=== PATIENT | female | born 1990 | race Caucasian/White ===

== ENCOUNTER 2016-11-05 22:58 | Emergency (ER) | payer OTHER ==
[~2016-11-05] VITALS: Ht 160 cm; Wt 116.5 kg
[~2016-11-05 22:58] MED LIST: FERR27TA PO; PREN1TAB49 PO
[2016-11-05 23:01] VITALS: Ht 160 cm; Wt 116.5 kg
[2016-11-05] MEDS ORDERED: PRED20TA PO (23:40)
[2016-11-05] MEDS ORDERED: AZIT250T94 PO (23:40)
[2016-11-05 23:52] VITALS: BP 123/65; PULSE 91; RESP 20; TEMP 98.7
--- NOTE | 2016-11-06 00:41 | ERD ---
ER Documentation Chief Complaint Date/Time DATE: 11/06/16 TIME: 00:39 Chief Complaint sore throat/bilateral earache x 1 day HPI This patient is a 26-year-old female presenting to the emergency department for bilateral ear pain and sore throat ongoing intermittently for the past day. She has had trouble swallowing food and water secondary to pain. Symptoms are worsened with eating and drinking. Symptoms are relieved with Tylenol. Symptoms are moderate in severity. She denies any fevers, chills, nausea, vomiting, diarrhea, or other symptoms. ROS All systems reviewed and are negative except as per history of present illness. Medications Home Meds Active Scripts Prednisone* (Prednisone*) 20 Mg Tab, 40 MG PO DAILY for 5 Days, #10 TAB Prov:JOSEPHINE MENDEZ PA-C 11/05/16 Azithromycin* (Zithromax*) 250 Mg Tablet, 250 MG PO .ZPACK DIRECTED, #6 TAB TAKE 500 MG (2 TABS) THE FIRST DAY THEN 250 MG (1 TAB) DAYS 2-5 Prov:JOSEPHINE MENDEZ PA-C 11/05/16 Reported Medications Ferrous Sulfate (Iron) 1 Tab Tablet, 1 TAB PO DAILY 01/13/11 Vits W-Ca,Fe,Fa(<1MG) () 1 Tab Tablet, 1 TAB PO DAILY 01/13/11 Allergies Allergies: Coded Allergies: No Known Drug Allergies (Verified Allergy, Unknown, 11/05/16) PMhx/Soc Medical and Surgical Hx: pt denies Medical Hx, pt denies Surgical Hx History of Surgery: No Anesthesia Reaction: No Hx Neurological Disorder: No Hx Respiratory Disorders: No Hx Cardiac Disorders: No Hx Psychiatric Problems: No Hx Miscellaneous Medical Probl: No Hx Alcohol Use: No Hx Substance Use: No Hx Tobacco Use: No Smoking Status: Never smoker Physical Exam Vitals Vital Signs Date Time Temp Pulse Resp B/P Pulse Ox O2 Delivery O2 Flow Rate FiO2 11/05/16 23:52 98.7 91 20 123/65 99 Room Air 11/05/16 23:01 99.2 102 20 137/71 98 Physical Exam Const: Nontoxic, well-appearing female in no acute distress. Head: Atraumatic Eyes: Normal Conjunctiva ENT: Normal External Ears, Nose and Mouth. There is bilateral tonsillar hypertrophy, erythema, but the airway is clear. There is no uvular deviation. Neck: Full range of motion..~ No meningismus. Resp: Clear to auscultation bilaterally Cardio: Regular rate and rhythm, no murmurs Abd: Soft, non tender, non distended. Normal bowel sounds Skin: No petechiae or rashes Back: No midline or flank tenderness Ext: No cyanosis, or edema Neur: Awake and alert Psych: Normal Mood and Affect Procedures/MDM 26-year-old female presenting to the emergency department with complaints of odynophagia and dysphagia. On physical examination the patient's vitals are within normal limits. History and clinical examination is concerning for tonsillitis. The patient stable for outpatient management with a prescription for azithromycin and prednisone. Her questions and concerns were addressed. I low suspicion for peritonsillar abscess, retropharyngeal abscess, septicemia, or other emergent conditions. Close follow-up with the primary care physician advised. Strict ER return precautions were discussed. Departure Diagnosis: Primary Impression: Tonsillitis Condition: Fair Patient Instructions: Pharyngitis, Strep (Presumed) Additional Instructions: Follow up with your PCP within the next 1-3 days for a repeat evaluation and a possible referral to a specialist, if required. Return the the emergency department immediately if symptoms worsen or change. If you have any questions regarding medications, ask your pharmacist or us before you leave. If any adverse reactions, occur while taking your medications, discontinue the treatment and return to the emergency department immediately. If any new or worsening symptoms, uncontrolled fevers, or other unexplained symptoms occur, return to the emergency department immediately. Take your medications as directed, and complete the entire course of treatment. JOSEPHINE MENDEZ PA-C Nov 06, 2016 00:41
== END 2016-11-05 23:52 | disposition home or self-care (01) ==
LOC: FTE 22:58
DX: J03.90 Acute tonsillitis, unspecified (principal)
CPT/HCPCS: 99284

== ENCOUNTER 2018-04-17 17:42 | Emergency (ER) | END 2018-04-17 19:16 | disposition home or self-care (01) ==

== ENCOUNTER 2018-07-19 08:34 | Emergency (ER) | payer OTHER ==
[~2018-07-19] VITALS: Ht 167.6 cm; Wt 129.0 kg
[~2018-07-19 08:34] MED LIST changes: +AZIT250T PO; +IBUP-1542 PO; +PENI500T PO; +PRED20TA PO; +TYL500 PO
[2018-07-19 08:38] VITALS: BP 147/63; PULSE 93; RESP 18; Ht 167.6 cm; Wt 129.0 kg
[2018-07-19] MEDS ORDERED: AZIT250T PO (08:56)
[2018-07-19] MEDS ORDERED: PSEU-79 PO (08:56)
[2018-07-19] MEDS ORDERED: FLUT9.9S NASAL (08:56)
--- NOTE | 2018-07-19 15:31 | ERD ---
ER Documentation Chief Complaint Chief Complaint HEADACHE , RT EAR PAIN X 3 WEEKS HPI 28-year-old female presenting with headache and ear pain times 2 weeks. Patient has had some mild sinus congestion and frontal headaches. Took Advil yesterday but no medication today. No fevers. Medical history of migraine. NKDA. Surgical history denies. Social history denies ROS All systems reviewed and are negative except as per history of present illness. Medications Home Meds Active Scripts Azithromycin* (Zithromax*) 250 Mg Tablet, 250 MG PO .AnjumPAAARON DIRECTED, #6 TAB TAKE 500 MG (2 TABS) THE FIRST DAY THEN 250 MG (1 TAB) DAYS 2-5 Prov:RODOLFO HANCOCK PA-C 07/19/18 Fluticasone Propionate (Flonase Allergy Relief) 9.9 Ml [place].susp, 1 SPRAY NASAL DAILY, #1 BOTTLE TO EACH NOSTRIL Prov:RODOLFO HANCOCK PA-C 07/19/18 Pseudoephedrine Hcl* (Suphedrin*) 30 Mg Tablet, 30 MG PO Q6 PRN for CONGESTION, #30 TAB Prov:RODOLFO HANCOCK PA-C 07/19/18 Acetaminophen* (Tylenol*) 500 Mg Tab, 500 MG PO Q4H PRN for MILD PAIN LEVEL 1-3, #30 TAB Prov:TOBY NARAYAN DO 04/17/18 Ibuprofen* (Motrin*) 600 Mg Tab, 600 MG PO Q6H PRN for PAIN, #30 TAB Prov:TOBY NARAYAN DO 04/17/18 Penicillin V Potassium* (Penicillin V K*) 500 Mg Tab, 500 MG PO TID for strep throat for 10 Days, #30 TAB Prov:TOBY NARAYAN DO 04/17/18 Prednisone* (Prednisone*) 20 Mg Tab, 40 MG PO DAILY for 5 Days, #10 TAB Prov:JOSEPHINE MENDEZ PA-C 11/05/16 Azithromycin* (Zithromax*) 250 Mg Tablet, 250 MG PO .RAYMOND DIRECTED, #6 TAB TAKE 500 MG (2 TABS) THE FIRST DAY THEN 250 MG (1 TAB) DAYS 2-5 Prov:JOSEPHINE MENDEZ PA-C 11/05/16 Reported Medications Ferrous Sulfate (Iron) 1 Tab Tablet, 1 TAB PO DAILY 01/13/11 Vits W-Ca,Fe,Fa(<1MG) () 1 Tab Tablet, 1 TAB PO DAILY 01/13/11 Allergies Allergies: Coded Allergies: No Known Drug Allergies (Verified Allergy, Unknown, 11/05/16) PMhx/Soc History of Surgery: No Anesthesia Reaction: No Hx Neurological Disorder: No Hx Respiratory Disorders: No Hx Cardiac Disorders: No Hx Psychiatric Problems: No Hx Miscellaneous Medical Probl: No Hx Alcohol Use: No Hx Substance Use: No Hx Tobacco Use: No Smoking Status: Never smoker FmHx Family History: No diabetes, No coronary disease, No other Physical Exam Vitals Vital Signs Date Temp Pulse Resp B/P (MAP) Pulse Ox O2 O2 Flow FiO2 Time Delivery Rate 07/19/18 98.3 93 18 147/63 99 08:38 (91) Physical Exam GENERAL: The patient is well-appearing, well-nourished, in no acute distress HEENT: Atraumatic. Conjunctivae are pink. Pupils equal, round, and reactive to light. There is no scleral icterus. Tympanic membranes clear bilaterally. Oropharynx clear. NECK: C-spine is soft and supple. There is no meningismus. There is no cervical lymphadenopathy. CHEST: Clear to auscultation bilaterally. There are no rales, wheezes or rhonchi. HEART: Regular rate and rhythm. No murmurs, clicks, rubs or gallops. NEUROLOGIC: Alert and oriented. Cranial nerves II through XII intact. Motor strength in all 4 extremities with 5 out of 5 strength. Sensation grossly intact. Normal speech and gait. SKIN: There is no apparent rash or petechiae. The skin is warm and dry. Procedures/MDM MDM: 28-year-old female presenting with sinus congestion. Patient's headache is likely associated with sinus congestion I will treat with antibiotics given the symptoms have been going on for 3 weeks. Patient will also be discharged with decongestants. I have low suspicion for intracranial hemorrhage or neuro defic it. I have low suspicion for sepsis. Patient is discharged with stricter precautions and told to follow-up with primary care within 1-2 days for close evaluation. Patient is told symptoms change or worsen to return immediately to the ER. All questions answered at discharge Departure Diagnosis: Primary Impression: Sinusitis Additional Impression: Headache Condition: Stable Patient Instructions: Self-Care for Headaches Additional Instructions: FOLLOW UP WITH YOUR PRIMARY CARE PHYSICIAN TOMORROW.Return to this facility if you are not improving as expected. RODOLFO HANCOCK PA-C Jul 19, 2018 15:31
== END 2018-07-19 09:25 | disposition home or self-care (01) ==
LOC: FTE 08:34
DX: J32.9 Chronic sinusitis, unspecified (principal)
CPT/HCPCS: 99283

== ENCOUNTER 2018-11-09 17:58 | Emergency (ER) | payer OTHER ==
[~2018-11-09] VITALS: Wt 98.0 kg
[~2018-11-09 17:58] MED LIST changes: +FLUT9.9S NASAL; +PSEU-79 PO
[2018-11-09] MEDS ORDERED: IBUPROFEN 600 MG TAB PO ONE (20:00)
[2018-11-09] MEDS ORDERED: D-ME473S2 PO (20:46)
--- NOTE | 2018-11-09 20:50 | ERD ---
ER Documentation Chief Complaint Chief Complaint SORE THROAT HPI This is a 28-year-old female presents ED with complaints of sore throat x4 days. Patient admits to runny nose and cough and congestion. Denies fever, chills, nausea, vomiting, diarrhea, constipation, sputum production, shortness of breath, trouble breathing, chest pain and all other symptoms. No known drug allergies. ROS All systems reviewed and are negative except as per history of present illness. Medications Home Meds Active Scripts Dextromethorphan Hb-Promethazine Hcl* (Promethazine DM* Syrup) 473 Ml Syrup, 5 ML PO Q6 PRN for COUGH for 5 Days, ML Prov:DULCE MIKE PA-C 11/09/18 Azithromycin* (Zithromax*) 250 Mg Tablet, 250 MG PO .ZPAAARON DIRECTED, #6 TAB TAKE 500 MG (2 TABS) THE FIRST DAY THEN 250 MG (1 TAB) DAYS 2-5 Prov:RODOLFO HANCOCK PA-C 07/19/18 Fluticasone Propionate (Flonase Allergy Relief) 9.9 Ml [place].susp, 1 SPRAY NASAL DAILY, #1 BOTTLE TO EACH NOSTRIL Prov:RODOLFO HANCOCK PA-C 07/19/18 Pseudoephedrine Hcl* (Suphedrin*) 30 Mg Tablet, 30 MG PO Q6 PRN for CONGESTION, #30 TAB Prov:RODOLFO HANCOCK PA-C 07/19/18 Acetaminophen* (Tylenol*) 500 Mg Tab, 500 MG PO Q4H PRN for MILD PAIN LEVEL 1-3, #30 TAB Prov:TOBY NARAYAN DO 04/17/18 Ibuprofen* (Motrin*) 600 Mg Tab, 600 MG PO Q6H PRN for PAIN, #30 TAB Prov:TOBY NARAYAN DO 04/17/18 Penicillin V Potassium* (Penicillin V K*) 500 Mg Tab, 500 MG PO TID for strep throat for 10 Days, #30 TAB Prov:TOBY NARAYAN DO 04/17/18 Prednisone* (Prednisone*) 20 Mg Tab, 40 MG PO DAILY for 5 Days, #10 TAB Prov:JOSEPHINE MENDEZC 11/05/16 Azithromycin* (Zithromax*) 250 Mg Tablet, 250 MG PO .ZPACK DIRECTED, #6 TAB TAKE 500 MG (2 TABS) THE FIRST DAY THEN 250 MG (1 TAB) DAYS 2-5 Prov:JOSEPHINE MENDEZ PA-C 11/05/16 Reported Medications Ferrous Sulfate (Iron) 1 Tab Tablet, 1 TAB PO DAILY 01/13/11 Vits W-Ca,Fe,Fa(<1MG) () 1 Tab Tablet, 1 TAB PO DAILY 01/13/11 Allergies Allergies: Coded Allergies: No Known Drug Allergies (Verified Allergy, Unknown, 11/05/16) PMhx/Soc History of Surgery: No Anesthesia Reaction: No Hx Neurological Disorder: No Hx Respiratory Disorders: No Hx Cardiac Disorders: No Hx Psychiatric Problems: No Hx Miscellaneous Medical Probl: No Hx Alcohol Use: No Hx Substance Use: No Hx Tobacco Use: No Smoking Status: Never smoker FmHx Family History: No diabetes Physical Exam Vitals Vital Signs Date Temp Pulse Resp B/P (MAP) Pulse Ox O2 O2 Flow FiO2 Time Delivery Rate 11/09/18 97.3 84 18 145/64 99 18:05 (91) Physical Exam Physical Exam Vitals signs: Reviewed by me. General: Well developed, well nourished, in no acute distress. Patient is awake and alert. Head: Normocephalic, atraumatic. Eyes: Normal conjunctiva, Pupils PERRLA, EOM intact grossly ENT: Pharynx is clear, Moist mucous membranes, external ears, nose and mouth normal, oropharynx is clear with mild tonsillar adenopathy, no exudate or erythema, no kissing tonsils, no uvula deviation, tympanic membrane visualized bilaterally with no bulging, erythema, purulent air-fluid line seen Neck: Supple, no masses, lymphadenopathy or JVD Respiratory: Clear to auscultation bilaterally with no wheezing, rhonchi, rales, no distress Cardiovascular: RRR, no murmurs, rubs, or gallops Neurologic: Alert and oriented, moving all extremities, normal speech, no focal weakness, no cerebellar signs. Normal mentation Skin: warm and dry, No rash Psych: Normal mood Results 24 hrs Current Medications Medications Dose Sig/Lay Start Time Status Last (Trade) Ordered Route PRN Stop Time Admin Dose Reason Admin Ibuprofen 600 mg ONCE ONCE 11/09/18 DC 11/09/18 (Motrin) PO 20:00 20:03 11/09/18 20:01 Procedures/MDM LAB INTERPRETATION: Strep negative ER COURSE: The patient was given ibuprofen The medication was well tolerated and the patient reports improvement in symptoms. The patient was stable throughout ED course. I kept the patient and/or family informed of laboratory and diagnostic imaging results throughout the emergency room course. The patient was promptly evaluated and a treatment plan was devised based on H&P and other data. This plan was discussed with the patient who agreed and had no further questions or concerns prior to discharge. MEDICAL DECISION MAKING: This is a 28-year-old female presents ED with URI-like symptoms for the past 4 days. Patient is requesting a strep test in the emergency department today. Strep is negative. The patient's clinical presentation is very consistent with an viral uri. No evidence of pneumonia. The patient is well-appearing without respiratory distress. Normal oxygen saturation. X-ray imaging not indicated. No indication for Tamiflu. The patient does not exhibit any clinical signs or symptoms concerning for serious bacterial infection or systemic illness. Based on history and clinical exam findings the patient does not appear to have evidence of pneumonia, strep pharyngitis, urinary tract infection, bacteremia, sepsis, or meningitis. For these reasons I do not believe it is necessary to obtain laboratory testing or diagnostic imaging. I believe it would be appropriate for symptom control, and close outpatient primary care follow-up. We discussed follow up with the patient's primary care doctor within 24 to 48 hours as needed. We also discussed return to the emergency room for worsening symptoms or worsening condition. DISPOSITION PLAN: We discussed follow up with the patient's primary care doctor within 24 to 48 hours. Patient counseled regarding my diagnostic impression and care plan. Prior to discharge all questions answered. Pt agrees with treatment plan and understands strict return precautions. Precautionary instructions provided including instructions to return to the ER if not improving or for any worsening or changing symptoms or concerns. SPECIALIST FOLLOW UP RECOMMENDED: None Patient has been advised to follow up with primary care in 1-2 days. Disclaimer: Inadvertent spelling and grammatical errors are likely due to EHR/dictation software use and do not reflect on the overall quality of patient care. Also, please note that the electronic time recorded on this note does not necessarily reflect the actual time of the patient encounter. Departure Diagnosis: Primary Impression: URI (upper respiratory infection) URI type: unspecified URI Qualified Codes: J06.9 - Acute upper respiratory infection, unspecified Condition: Stable Patient Instructions: Preventing Common Respiratory Infections Additional Instructions: Patient advised to return to the ED immediately for new or worsening symptoms. Patient advised to follow up with primary care provider in the next 24-48 hours. Patient verbalized understanding and agrees with treatment plan and course of action. If patient has no primary care they may follow up with one of the community clinics listed on the following page or one of the options listed below [facility] [address] [place] [id number] or [facility] [address] [place] [address] or [facility] [address] [place] [address] DULCE MIKE PA-C Nov 09, 2018 20:50
[2018-11-09 20:54] VITALS: BP 124/76; PULSE 71; RESP 20
== END 2018-11-09 20:56 | disposition home or self-care (01) ==
LOC: FTE 17:58
DX: J06.9 Acute upper respiratory infection, unspecified (principal)
CPT/HCPCS: 87880; Z7502; Z7610; 99283